=== PATIENT | female | born 1995 | race Caucasian/White ===

== ENCOUNTER 2017-01-28 12:32 | Emergency (ER) | payer OTHER ==
--- NOTE | 2017-01-28 15:35 | UCPHY ---
H & P Time Seen by Provider: 01/28/17 15:23 Patient Type: New HPI/ROS: 21-year-old female with no past medical history presents complaining of severe epigastric pain. She has had several episodes over the last 3-4 days lasting approximately 30 minutes at a time. There has been no particular pattern, 1 episode was after running 1 episode was after a meal. No fever no chills, no vomiting. She does state during that time she has the pain she is curled up in a ball and has severe nausea. Review of systems General no fever no chills no weakness HEENT no eye pain no eye discharge. No eye redness, no sore throat Respiratory no cough, no shortness of breath Cardiac no chest pain, no peripheral edema GI positive abdominal pain, no diarrhea, no constipation, no nausea, no vomiting no flank pain, no hematuria, no dysuria Musculoskeletal no myalgias, no joint pain Heme no easy bruising, no easy bleeding Endo no polyuria, no polydipsia Skin no rashes, no pruritus Neuro no syncope, no dizziness, no headaches Psych is no suicidal ideation, no homicidal ideation Past Medical/Surgical History: Noncontributory Social History: Alcohol socially, denies drugs Smoking Status: Never smoked Physical Exam: 21-year-old female, alert and oriented in no acute distress nontoxic appearance afebrile, currently asymptomatic HEENT atraumatic normocephalic, extraocular muscles intact, anicteric Oropharynx negative for erythema negative exudate, tolerating her own secretions Neck supple no meningismus Lungs clear to auscultation bilaterally Heart regular rate and rhythm without murmur rub or gallop Abdomen nondistended normoactive bowel sounds epigastric tenderness to palpation , no guarding no rebound Back no CVA tenderness, no step-offs, no spinal tenderness Extremities no cyanosis clubbing or edema Neuro alert and oriented, no focal deficits Constitutional: Initial Vital Signs Temperature (C) 36.7 C 01/28/17 12:40 Heart Rate 74 01/28/17 12:40 Respiratory Rate 14 01/28/17 12:40 Blood Pressure 137/81 H 01/28/17 12:40 O2 Sat (%) 99 01/28/17 12:40 O2 Delivery Mode Room Air Allergies/Adverse Reactions: No Known Allergies Allergy (Verified 01/28/17 12:42) Home Medications: Medication Instructions Recorded NK [No Known Home Meds] 01/28/17 Medical Decision Making ED Course/Re-evaluation: Patient seen and evaluated for acute epigastric pain coming in 30 minutes episodes over the last 3-4 days with no obvious pattern. Physical exam significant for tenderness palpation epigastric area otherwise normal Urine and lab sent Labs significant for elevated LFTs and alk-phos Differential diagnosis Acute gastritis, ulcer, cholelithiasis, biliary colic, cholecystitis, pancreatitis Impression/plan Likely biliary colic Patient sent to [facility] ER for further evaluation including ultrasound and disposition after ultrasound - Data Points Laboratory Results: Laboratory Results 01/28/17 15:55 01/28/17 15:55 01/28/17 01/28/17 01/28/17 15:55 15:55 15:50 WBC 9.89 10^3/uL H 10^3/uL (3.80-9.50) RBC 5.07 10^6/uL 10^6/uL (4.18-5.33) Hgb 15.4 g/dL g/dL (12.6-16.3) Hct 46.3 % % (38.0-47.0) MCV 91.3 fL fL (81.5-99.8) MCH 30.4 pg pg (27.9-34.1) MCHC 33.3 g/dL g/dL (32.4-36.7) RDW 12.2 % % (11.5-15.2) Plt Count 350 10^3/uL 10^3/uL (150-400) MPV 10.2 fL fL (8.7-11.7) Neut % (Auto) 68.0 % % (39.3-74.2) Lymph % (Auto) 21.5 % % (15.0-45.0) [place] % (Auto) 5.8 % % (4.5-13.0) Eos % (Auto) 3.0 % % (0.6-7.6) Baso % (Auto) 1.0 % % (0.3-1.7) Nucleat RBC Rel Count 0.0 % % (0.0-0.2) Absolute Neuts (auto) 6.72 10^3/uL H 10^3/uL (1.70-6.50) Absolute Lymphs (auto) 2.13 10^3/uL 10^3/uL (1.00-3.00) Absolute Monos (auto) 0.57 10^3/uL 10^3/uL (0.30-0.80) Absolute Eos (auto) 0.30 10^3/uL 10^3/uL (0.03-0.40) Absolute Basos (auto) 0.10 10^3/uL 10^3/uL (0.02-0.10) Absolute Nucleated RBC 0.00 10^3/uL 10^3/uL (0-0.01) Immature Gran % 0.7 % % (0.0-1.1) Immature Gran # 0.07 10^3/uL 10^3/uL (0.00-0.10) Sodium 142 mEq/L mEq/L (134-144) Potassium 3.9 mEq/L mEq/L (3.5-5.2) Chloride 105 mEq/L mEq/L (97-110) Carbon Dioxide 18 mEq/l L mEq/l (22-31) Anion Gap 19 mEq/L H mEq/L (8-16) BUN 12 mg/dL mg/dL (7-23) Creatinine 0.6 mg/dL mg/dL (0.6-1.0) Estimated GFR > 60 Glucose 82 mg/dL mg/dL (70-100) Calcium 9.4 mg/dL mg/dL (8.5-10.4) Total Bilirubin 1.2 mg/dL mg/dL (0.1-1.4) AST 282 IU/L H IU/L (14-46) ALT 332 IU/L H IU/L (9-52) Alkaline Phosphatase 147 IU/L H IU/L (38-126) Total Protein 8.3 g/dL H g/dL (6.3-8.2) Albumin 4.4 g/dL g/dL (3.5-5.0) Lipase 72.0 IU/L IU/L (23-300) Urine Color Urine Appearance Urine pH Ur Specific [place] Urine Protein Urine Ketones Urine Blood Urine Nitrate Urine Bilirubin Urine Urobilinogen Ur Leukocyte Esterase Ur Culture Indicated? Urine Glucose Urine Test NEGATIVE 01/28/17 15:50 WBC RBC Hgb Hct MCV MCH MCHC RDW Plt Count MPV Neut % (Auto) Lymph % (Auto) [place] % (Auto) Eos % (Auto) Baso % (Auto) Nucleat RBC Rel Count Absolute Neuts (auto) Absolute Lymphs (auto) Absolute Monos (auto) Absolute Eos (auto) Absolute Basos (auto) Absolute Nucleated RBC Immature Gran % Immature Gran # Sodium Potassium Chloride Carbon Dioxide Anion Gap BUN Creatinine Estimated GFR Glucose Calcium Total Bilirubin AST ALT Alkaline Phosphatase Total Protein Albumin Lipase Urine Color YELLOW Urine Appearance HAZY Urine pH 5.5 (5.0-7.5) Ur Specific [place] >= 1.030 (1.002-1.030) Urine Protein NEGATIVE (NEGATIVE) Urine Ketones TRACE H (NEGATIVE) Urine Blood NEGATIVE (NEGATIVE) Urine Nitrate NEGATIVE (NEGATIVE) Urine Bilirubin NEGATIVE (NEGATIVE) Urine Urobilinogen 0.2 EU EU (0.2-1.0) Ur Leukocyte Esterase NEGATIVE (NEGATIVE) Ur Culture Indicated? NOT INDICATED (NI) Urine Glucose NEGATIVE (NEGATIVE) Urine Test Departure - Departure Disposition: [facility] ER Clinical Impression: Epigastric abdominal pain Condition: Good Instructions: Biliary Colic (ED), Gallstones (ED), Epigastric Pain (ED) Additional Instructions: Go directly to [facility] location they will be expecting you to get an ultrasound to further evaluate her gallbladder and for potential admission depending on those findings. Referrals: NONE *PRIMARY CARE P,. [Primary Care Provider] - As per Instructions - PQRS PQRS Measurement: na
[2017-01-28 16:07] LABS: COLOR YELLOW; LEUKOCYTE ESTERASE,URINE NEGATIVE (NEGATIVE); NITRITE,URINE NEGATIVE (NEGATIVE); PH,URINE 5.5 (5.0-7.5)
[2017-01-28 16:21] LABS: % IMMATURE GRANULYOCYTES 0.7 % (0.0-1.1); ABSOLUTE IMMATURE GRANULOCYTES 0.07 10^3/uL (0.00-0.10); ADD DIFF? NO; ADD MORPH? NO; ADD SCAN? NO; ATYPICAL LYMPHOCYTE FLAG 30 (0-99); FRAGMENT RBC FLAG 0 (0-99); HEMATOCRIT 46.3 % (38.0-47.0); HEMOGLOBIN 15.4 g/dL (12.6-16.3); LEFT SHIFT FLG 0 (0-99); LIPEMIA HEMOLYSIS FLAG 80 (0-99); MEAN CELL HEMOGLOBIN 30.4 pg (27.9-34.1); MEAN CELL HEMOGLOBIN CONCENTR. 33.3 g/dL (32.4-36.7); MEAN CELL VOLUME 91.3 fL (81.5-99.8); MEAN PLATELET VOLUME 10.2 fL (8.7-11.7); PLATELET CLUMPS FLAG 40 (0-99); PLATELET COUNT 350 10^3/uL (150-400); RED BLOOD CELL COUNT 5.07 10^6/uL (4.18-5.33); RED CELL DISTRIBUTION WIDTH 12.2 % (11.5-15.2)
[2017-01-28 16:22] LABS: ALANINE AMINOTRANSFERASE 332 IU/L (9-52); ALBUMIN 4.4 g/dL (3.5-5.0); ALKALINE PHOSPHATASE 147 IU/L (38-126); ANION GAP 19 mEq/L (8-16); ASPARTATE AMINOTRANSFERASE 282 IU/L (14-46); BILIRUBIN,TOTAL 1.2 mg/dL (0.1-1.4); CALCIUM 9.4 mg/dL (8.5-10.4); CARBON DIOXIDE 18 mEq/l (22-31); CHLORIDE 105 mEq/L (97-110); CREATININE 0.6 mg/dL (0.6-1.0); GLOMERULAR FILTRATION RATE > 60; GLUCOSE 82 mg/dL (70-100); POTASSIUM 3.9 mEq/L (3.5-5.2); SODIUM 142 mEq/L (134-144); TOTAL PROTEIN 8.3 g/dL (6.3-8.2)
[2017-01-28 17:33] VITALS: TEMP 97.9
--- NOTE | 2017-01-28 17:45 | EDPHY ---
H & P Time Seen by Provider: 01/28/17 15:23 HPI/ROS: CHIEF COMPLAINT: Abdominal pain HISTORY OF PRESENT ILLNESS: The patient is a 21 year old female, [place] [facility]. The patient started having shooting abdominal pain about 1 week ago. The pain is localized to the epigastric region. It is intermittent and lasts for about 30 minutes. She has had 3 episodes of this pain , most recently yesterday evening. She has associated nausea, no vomiting. Pain does not seem to be clearly related to eating. No known alleviating or aggravating factors. The patient was seen at [facility] [place] and had elevated LFTs. She was sent here for a gallbladder ultrasound. REVIEW OF SYSTEMS: A comprehensive 10 point review of systems is otherwise negative aside from elements mentioned in the history of present illness. Past Medical/Surgical History: Denies. Social History: No drug use. No alcohol use. Nonsmoker. Smoking Status: Never smoked Physical Exam: General Appearance: Alert, pleasant Eyes: Pupils equal and round, no conjunctival pallor ENT, Mouth: Mucous membranes moist Neck: Normal inspection Respiratory: Lungs are clear to auscultation Cardiovascular: Regular rate and rhythm Gastrointestinal: Abdomen is soft and non-tender Neurological: A&O, nonfocal, normal gait Skin: Warm and dry, no rash Extremities: Normal inspection Psychiatric: Mood and affect normal Constitutional: Initial Vital Signs Temperature (C) 36.7 C 01/28/17 12:40 Heart Rate 74 01/28/17 12:40 Respiratory Rate 14 01/28/17 12:40 Blood Pressure 137/81 H 01/28/17 12:40 O2 Sat (%) 99 01/28/17 12:40 O2 Delivery Mode Room Air Allergies/Adverse Reactions: No Known Allergies Allergy (Verified 01/28/17 12:42) Home Medications: Medication Instructions Recorded Pantoprazole Sodium [Protonix 40mg 40 mg PO DAILY #20 tab 01/28/17 (*)] Medical Decision Making - Diagnostics Imaging: Study: Ultrasound the abdomen was obtained. Results: Negative. Images were interpreted by the radiologist, Dr. Doss. I viewed the images myself on the PACS system. ED Course/Re-evaluation: 1899: US was negative. I discussed findings with the patient. She is pain free. Abdomen remained soft and nontender. For now, I will treat her for acute gastritis. She will follow up with Gastroenterology for further evaluation, especially in light of the elevated LFTs. Differential Diagnosis: Differential diagnosis includes though it is not limited to acute hepatitis, cholecystitis, pancreatitis, kidney stone, bowel perforation, small bowel obstruction. - Data Points Laboratory Results: Laboratory Results 01/28/17 15:55 01/28/17 15:55 01/28/17 01/28/17 01/28/17 15:55 15:55 15:50 WBC 9.89 10^3/uL H 10^3/uL (3.80-9.50) RBC 5.07 10^6/uL 10^6/uL (4.18-5.33) Hgb 15.4 g/dL g/dL (12.6-16.3) Hct 46.3 % % (38.0-47.0) MCV 91.3 fL fL (81.5-99.8) MCH 30.4 pg pg (27.9-34.1) MCHC 33.3 g/dL g/dL (32.4-36.7) RDW 12.2 % % (11.5-15.2) Plt Count 350 10^3/uL 10^3/uL (150-400) MPV 10.2 fL fL (8.7-11.7) Neut % (Auto) 68.0 % % (39.3-74.2) Lymph % (Auto) 21.5 % % (15.0-45.0) [place] % (Auto) 5.8 % % (4.5-13.0) Eos % (Auto) 3.0 % % (0.6-7.6) Baso % (Auto) 1.0 % % (0.3-1.7) Nucleat RBC Rel Count 0.0 % % (0.0-0.2) Absolute Neuts (auto) 6.72 10^3/uL H 10^3/uL (1.70-6.50) Absolute Lymphs (auto) 2.13 10^3/uL 10^3/uL (1.00-3.00) Absolute Monos (auto) 0.57 10^3/uL 10^3/uL (0.30-0.80) Absolute Eos (auto) 0.30 10^3/uL 10^3/uL (0.03-0.40) Absolute Basos (auto) 0.10 10^3/uL 10^3/uL (0.02-0.10) Absolute Nucleated RBC 0.00 10^3/uL 10^3/uL (0-0.01) Immature Gran % 0.7 % % (0.0-1.1) Immature Gran # 0.07 10^3/uL 10^3/uL (0.00-0.10) Sodium 142 mEq/L mEq/L (134-144) Potassium 3.9 mEq/L mEq/L (3.5-5.2) Chloride 105 mEq/L mEq/L (97-110) Carbon Dioxide 18 mEq/l L mEq/l (22-31) Anion Gap 19 mEq/L H mEq/L (8-16) BUN 12 mg/dL mg/dL (7-23) Creatinine 0.6 mg/dL mg/dL (0.6-1.0) Estimated GFR > 60 Glucose 82 mg/dL mg/dL (70-100) Calcium 9.4 mg/dL mg/dL (8.5-10.4) Total Bilirubin 1.2 mg/dL mg/dL (0.1-1.4) AST 282 IU/L H IU/L (14-46) ALT 332 IU/L H IU/L (9-52) Alkaline Phosphatase 147 IU/L H IU/L (38-126) Total Protein 8.3 g/dL H g/dL (6.3-8.2) Albumin 4.4 g/dL g/dL (3.5-5.0) Lipase 72.0 IU/L IU/L (23-300) Urine Color Urine Appearance Urine pH Ur Specific [place] Urine Protein Urine Ketones Urine Blood Urine Nitrate Urine Bilirubin Urine Urobilinogen Ur Leukocyte Esterase Ur Culture Indicated? Urine Glucose Urine Test NEGATIVE 01/28/17 15:50 WBC RBC Hgb Hct MCV MCH MCHC RDW Plt Count MPV Neut % (Auto) Lymph % (Auto) [place] % (Auto) Eos % (Auto) Baso % (Auto) Nucleat RBC Rel Count Absolute Neuts (auto) Absolute Lymphs (auto) Absolute Monos (auto) Absolute Eos (auto) Absolute Basos (auto) Absolute Nucleated RBC Immature Gran % Immature Gran # Sodium Potassium Chloride Carbon Dioxide Anion Gap BUN Creatinine Estimated GFR Glucose Calcium Total Bilirubin AST ALT Alkaline Phosphatase Total Protein Albumin Lipase Urine Color YELLOW Urine Appearance HAZY Urine pH 5.5 (5.0-7.5) Ur Specific [place] >= 1.030 (1.002-1.030) Urine Protein NEGATIVE (NEGATIVE) Urine Ketones TRACE H (NEGATIVE) Urine Blood NEGATIVE (NEGATIVE) Urine Nitrate NEGATIVE (NEGATIVE) Urine Bilirubin NEGATIVE (NEGATIVE) Urine Urobilinogen 0.2 EU EU (0.2-1.0) Ur Leukocyte Esterase NEGATIVE (NEGATIVE) Ur Culture Indicated? NOT INDICATED (NI) Urine Glucose NEGATIVE (NEGATIVE) Urine Test Medications Given: Discontinued Medications Pantoprazole Sodium (Protonix) 40 mg PO EDNOW ONE Stop: 01/28/17 19:05 Last Admin: 01/28/17 19:13 Dose: 40 mg Departure - Departure Disposition: Home, Routine, Self-Care Clinical Impression: Epigastric abdominal pain Condition: Good Instructions: Epigastric Pain (ED) Additional Instructions: Stay on a bland diet. Take Protonix as prescribed. Take Mylanta 30 minutes before meals and before bedtime. Avoid medications like Aspirin. Call the referred primary care physician to arrange a followup appointment. Call the hotel and dining room cashier tomorrow to arrange an appointment. Referrals: Júnior Moore MD, FACG [Medical Doctor] - As per Instructions Charlotte Srivastava [Other] - As per Instructions Prescriptions: Pantoprazole Sodium [Protonix 40mg (*)] 40 mg PO DAILY #20 tab Report Scribed for: Cleo Burns Report Scribed by: Alison Tafoya Date of Report: 01/28/17 Time of Report: 17:45 Physician Review and Approval Statement: 01/28/17 17:45 Portions of this note were transcribed by a medical office scheduler. I personally performed the history, physical exam, and medical decision-making; and confirmed the accuracy of the information in the transcribed note.
[2017-01-28 18:48] VITALS: BP 120/69; PULSE 76; RESP 16; O2SAT 96
[2017-01-28] MEDS ORDERED: PANTOPRAZOLE SODIUM 40 MG TAB PO ONE (19:04)
== END 2017-01-28 19:13 | disposition home or self-care (01) ==
LOC: CED 12:32
DX: R10.13 Epigastric pain (principal); R11.0 Nausea
CPT/HCPCS: 80053-PO; 81003-PO; 81025-PO; 83690-PO; 85025-PO; G0463-PO

== ENCOUNTER 2018-11-26 22:37 | Emergency (ER) | payer OTHER ==
--- NOTE | 2018-11-26 22:58 | EDPHY ---
H & P Stated Complaint: Epigastric pain lasting 4 hours. Time Seen by Provider: 11/26/18 22:55 HPI/ROS: CC: Epigastric pain x 4 hours (sent by Urgent Care) HPI: This 23-year-old female with past medical history of elevated liver function tests approximately 10 months ago presents to the emergency department ton[facility]jand[facility] complaining of epigastric pain that has been ongoing for the last 4 hours. It radiates to her right upper abdomen. She describes it as stabbing. It gets as severe as a 10/10. Today was 8/10. It is resolving since she arrived in the emergency department. She was sent here by the urgent care she visited this evening. She had pain yesterday as well which lasted about 30 min. She has been having this pain at least once every month or so. She had nausea without vomiting yesterday. She denies fever, chills, or lower abdominal pain. She denies and she is on oral contraception. She drinks 2 alcoholic beverages per day usually beer or vodka. For dinner this evening she had cooked some frozen breaded chicken with vegetables. Yesterday morning she had a cheese and sausage breakfast sandwich a few hours before the pain started. Tonight she took Tums and an Advil without relief. In January 2017 she had a similar pain and presented to the emergency department where she had elevated liver function tests with an AST of 282 and an ALT of 332. She had an ultrasound at that time which was negative. She did not follow up with a primary care provider or a log check scaler as recommended. REVIEW OF SYSTEMS: Constitutional: No fever, no chills. Eyes: No discharge. ENT: No sore throat. Respiratory: No cough, no shortness of breath. Cardiac: No chest pain, no palpitations. Gastrointestinal: See HPI. Genitourinary: No dysuria. Musculoskeletal: No back pain. Skin: No rashes. Neurological: No headache. Source: Patient - Personal History LMP (Females 10-55): Extended Cycle BCP/Inj Current Tetanus/Diphtheria Vaccine: Unsure Current Tetanus Diphtheria and Acellular Pertussis (TDAP): Unsure Tetanus Vaccine Date: within 10 years - Medical/Surgical History PMH: PMH: Denied PSH: Denied FH: Denied NKDA Meds: OC, occasional Tums, Advil No PCP. Hx Asthma: No Hx Chronic Respiratory Disease: No Hx Diabetes: No Hx Cardiac Disease: No Hx Renal Disease: No Hx Cirrhosis: No Hx Alcoholism: No Hx HIV/AIDS: No Hx Splenectomy or Spleen Trauma: No Other PMH: Denies. - Social History Smoking Status: Never smoked Additional Social History: Denies tobacco products. Two alcoholic beverages per day usually beer or vodka. No marijuana or other drug use. - Physical Exam Exam: General Appearance: Alert, no distress. Eyes: Pupils equal and round no pallor or injection. ENT, Mouth: Mucous membranes are moist. Respiratory: There are no retractions, lungs are clear to auscultation. Cardiovascular: Regular rate and rhythm. Gastrointestinal: Abdomen is soft and nontender, no masses, bowel sounds normal. Neurological: Awake and alert, sensory and motor exams grossly normal. Skin: Warm and dry, no rashes. Musculoskeletal: Neck is supple, nontender. Extremities are symmetrical, full range of motion. Psychiatric: Patient is oriented X 3, there is no agitation. DIFFERENTIAL DIAGNOSIS: After history and physical exam differential diagnosis was considered for but not limited to and no particular order: Biliary colic, coli lithiasis, cholecystitis, gastritis, pancreatitis, retrocecal appendicitis , ovarian cyst Constitutional: Initial Vital Signs Temperature (C) 98.2 F 11/26/18 22:49 Heart Rate 70 11/26/18 22:49 Respiratory Rate 16 11/26/18 22:49 Blood Pressure 130/80 H 11/26/18 22:49 O2 Sat (%) 97 11/26/18 22:49 O2 Delivery Mode Room Air Allergies/Adverse Reactions: No Known Allergies Allergy (Verified 11/26/18 22:53) Home Medications: Medication Instructions Recorded Cyred 28 Day Tablet 11/26/18 Medical Decision Making ED Course/Re-evaluation: The patient was seen and examined. Vital signs were significant for a very mildly elevated blood pressure with a systolic of 130 mm of mercury. Prior records were reviewed which showed a visit in January 2017 for epigastric pain where her bilirubin was 1.2, AST 282 and ALT 332. An abdominal ultrasound was negative specifically there was no evidence of cholelithiasis or biliary ductal dilatation. This evening the patient became pain-free while in the ER. Her complete blood count was normal. Her comprehensive metabolic panel showed her bilirubin is now 1.6 with an AST of 101 and an ALT of 66. The patient was advised to follow up with the primary care provider listed. She may need a repeat abdominal ultrasound and possibly a HIDA scan as well. She should also follow up with a log check scaler as listed. In the meantime, she should follow a low-fat diet , consider Mylanta, Prilosec OTC, or Zantac/Pepcid for epigastric pain. She will return to the emergency room if she has increased or persistent pain, fever , nausea, vomiting, or any other concerns. All her questions were answered and she was pain free at discharge. - Data Points Laboratory Results: 11/26/18 11/26/18 11/26/18 23:15 23:01 22:55 POC Sodium 141 mEq/L mEq/L 156 mEq/L H mEq/L (135-145) (135-145) POC Potassium 3.2 mEq/L L mEq/L > 8.5 mEq/L H* mEq/L (3.3-5.0) (3.3-5.0) POC Chloride 109.0 mEq/L mEq/L 104.0 mEq/L mEq/L (97-110) (97-110) POC Total CO2 24 mEq/L mEq/L 21 mEq/L L mEq/L (22-31) (22-31) POC BUN 9 mg/dL mg/dL 9 mg/dL mg/dL (7-23) (7-23) POC Creatinine 0.7 mg/dL mg/dL 0.9 mg/dL mg/dL (0.6-1.0) (0.6-1.0) POC Glucose 114 mg/dL H mg/dL 116 mg/dL H mg/dL (70-100) (70-100) POC Calcium 9.4 mg/dL mg/dL < 4.0 mg/dL L* mg/dL (8.5-10.4) (8.5-10.4) POC Total Bilirubin 1.6 mg/dL H mg/dL 1.6 mg/dL H mg/dL (0.1-1.4) (0.1-1.4) POC AST 101 IU/L H IU/L 104 IU/L H IU/L (14-46) (14-46) POC ALT 66 IU/L H IU/L 68 IU/L H IU/L (9-52) (9-52) POC Alk Phosphatase 84 IU/L IU/L 49 IU/L IU/L (38-126) (38-126) POC Total Protein 6.8 g/dL g/dL 6.7 g/dL g/dL (6.3-8.2) (6.3-8.2) POC Albumin 3.5 g/dL g/dL 3.6 g/dL g/dL (3.5-5.0) (3.5-5.0) Lipase 301 IU/L H IU/L (23-300) Point of Care Test Results: CBC CBC Collection Date 11/26/18 CBC Collection Time 22:55 WBC 10.5 RBC 4.85 HGB 14.9 HCT 42.6 PLT 387 Neut # 7.9 Neut 75.2 LYMPH # 1.7 LYMPH 15.8 Other WBC # 0.9 Other WBC 9.0 MCV 87.8 Chemistry 11/26/18 11/26/18 23:15 23:01 POC Sodium 141 mEq/L mEq/L 156 mEq/L H mEq/L (135-145) (135-145) POC Potassium 3.2 mEq/L L mEq/L > 8.5 mEq/L H* mEq/L (3.3-5.0) (3.3-5.0) POC Chloride 109.0 mEq/L mEq/L 104.0 mEq/L mEq/L (97-110) (97-110) POC Total CO2 24 mEq/L mEq/L 21 mEq/L L mEq/L (22-31) (22-31) POC BUN 9 mg/dL mg/dL 9 mg/dL mg/dL (7-23) (7-23) POC Creatinine 0.7 mg/dL mg/dL 0.9 mg/dL mg/dL (0.6-1.0) (0.6-1.0) POC Glucose 114 mg/dL H mg/dL 116 mg/dL H mg/dL (70-100) (70-100) POC Calcium 9.4 mg/dL mg/dL < 4.0 mg/dL L* mg/dL (8.5-10.4) (8.5-10.4) POC Total Bilirubin 1.6 mg/dL H mg/dL 1.6 mg/dL H mg/dL (0.1-1.4) (0.1-1.4) POC AST 101 IU/L H IU/L 104 IU/L H IU/L (14-46) (14-46) POC ALT 66 IU/L H IU/L 68 IU/L H IU/L (9-52) (9-52) POC Alk Phosphatase 84 IU/L IU/L 49 IU/L IU/L (38-126) (38-126) POC Total Protein 6.8 g/dL g/dL 6.7 g/dL g/dL (6.3-8.2) (6.3-8.2) POC Albumin 3.5 g/dL g/dL 3.6 g/dL g/dL (3.5-5.0) (3.5-5.0) Departure - Departure Disposition: Home, Routine, Self-Care Clinical Impression: Intermittent epigastric abdominal pain, Elevated LFTs Condition: Good Instructions: Low Fat Diet (ED), Epigastric Pain (ED) Additional Instructions: Follow a low fat diet. Consider Mylanta, Prilosec OTC or Zantac/Pepcid for epigastric discomfort. Call first thing in the morning to arrange follow up with a primary care provider. You may need a repeat biliary ultrasoun and/or HIDA scan. Also follow up with gastroenterology. Return to the ER if pain persists, fever, nausea, vomiting or any other concerns. Referrals: NONE *PRIMARY CARE P,. [Primary Care Provider] - As per Instructions Cristino Irizarry MD [[facility] [place] Primary Care Provider] - As per Instructions Jody Jean MD [Medical Doctor] - As per Instructions
[2018-11-27 00:22] VITALS: BP 120/88
== END 2018-11-27 00:05 | disposition home or self-care (01) ==
LOC: CED 22:37
DX: R10.13 Epigastric pain (principal); R94.5 Abnormal results of liver function studies
CPT/HCPCS: 80053-ER; 99283-ER

== ENCOUNTER → 2018-11-28 | Outpatient (CLI) | payer OTHER | LOC: FIMAGING 07:41 | PROVIDERS: ATTEND Physician Assistant | DX: R74.8 Abnormal levels of other serum enzymes (principal) ==

== ENCOUNTER 2019-02-10 18:00 | Emergency (ER) | payer OTHER ==
[2019-02-10] MEDS ORDERED: NS 1,000 ML IV ONE ×2 (18:33→20:30)
[2019-02-10] MEDS ORDERED: KETOROLAC 15 MG/1 ML SDV IVP ONE ×3 (19:08→21:15)
[2019-02-10] MEDS: HYOSCYAMINE SULFATE 0.125 MG TAB PO ONE ×2 (19:20→19:25)
[2019-02-10] MEDS ORDERED: MAG HYDROX/AL HYDROX/SIMETH 30 ML UDCUP PO ONE (19:22)
--- NOTE | 2019-02-10 21:08 | EDPHY ---
H & P Stated Complaint: Pt. states ruq to mid epigastric aprox 1300 today,denies vomit /diarrhea Time Seen by Provider: 02/10/19 18:33 HPI/ROS: This patient presents with right upper quadrant pain of 6 hr duration. She admits to drinking more alcohol last week than typical for her than 4 drinks a day for a number of days in a row or more prior to the onset of the symptoms however her last drink she reports was 2 days prior to the symptoms. She has recently seen with similar symptoms and start omeprazole 1 month ago 20 mg a day and she reports compliance with that medication. Currently she describes the pain as stabbing waxing and waning in intensity but peak intensity 8/10 with no clear exacerbating factors. She has anorexia today associated with the symptoms and mild nausea. She denies any radiation of pain to her back or elsewhere. There is no change of the pain with a deep breath. He has no other associated symptoms. ROS: Constitutional: No fevers HEENT: No URI symptoms Pulmonary: No cough shortness of breath Cardiovascular: No lightheadedness or chest pain. GI: She had loose stools yesterday that have since resolved. No bloody stools or dark tarry stools. No hematemesis. : Last menstrual period was normal timing 10 days ago. No vaginal discharge. No dysuria. Integumentary: No complaints 10 point review of symptoms is performed and otherwise negative with exception of pertinent positives and negatives listed in HPI and ROS Source: Patient Exam Limitations: No limitations - Personal History LMP (Females 10-55): 8-14 Days Ago Tetanus Vaccine Date: within 10 years - Medical/Surgical History Hx Asthma: No Hx Chronic Respiratory Disease: No Hx Diabetes: No Hx Cardiac Disease: No Hx Renal Disease: No Hx Cirrhosis: No Hx Alcoholism: No Hx HIV/AIDS: No Hx Splenectomy or Spleen Trauma: No Other PMH: Med hx-GERD. Surg-none. She reports having had a normal gallbladder ultrasound within the past year. - Family History Significant Family History: No pertinent family hx - Social History Smoking Status: Never smoked Alcohol Use: Heavy Drug Use: None Additional Social History: She works the [employer]. - Physical Exam Exam: General Appearance: Alert, no distress. Eyes: Pupils equal and round no pallor or injection. ENT, Mouth: Mucous membranes moist. Respiratory: There are no retractions, lungs are clear to auscultation. Cardiovascular: Regular rate and rhythm. Gastrointestinal: Normoactive soft, mild hepatomegaly-liver edge palpable a couple cm below the right lower ribs with associated tenderness. Back: No CVA tenderness Neurological: GCS 15. Skin: Warm and dry, no rashes. Musculoskeletal: Neck is supple nontender. Extremities are symmetrical, full range of motion. Psychiatric: Mood and affect are normal DIFFERENTIAL DIAGNOSIS: After history and physical exam differential diagnosis was considered for alcohol hepatitis, pancreatitis, gastritis, Constitutional: Initial Vital Signs Temperature (C) 36.8 C 02/10/19 18:17 Heart Rate 64 02/10/19 18:17 Respiratory Rate 16 02/10/19 18:17 Blood Pressure 124/71 H 02/10/19 18:17 O2 Sat (%) 99 02/10/19 18:17 O2 Delivery Mode Room Air Allergies/Adverse Reactions: amoxicillin Allergy (Verified 02/10/19 18:17) Home Medications: Medication Instructions Recorded Cyred 28 Day Tablet 11/26/18 Omeprazole 02/10/19 Medical Decision Making ED Course/Re-evaluation: IV normal saline bolus x2 L Zofran for nausea and Toradol IV for pain as well as Levsin sublingual with mild improvement. Were repeated the Toradol 15 mg with further improvement down to mild discomfort. She also received relief from the Zofran for nausea with resolution of nausea. I reviewed her labs-POC CBC reveals white count mild elevation to 12 in half. H &H and platelets normal. Electrolytes normal. LFTs reveal elevated AST more than ALT, mild elevation of bili and alk-phos as well as mild elevation of GGT. Amylase is normal. Urine dip is normal. Urine is negative. The patient's lipase came back slightly elevated at 331 with high normal 300. Counseled regarding this in some detail. Discussion: Findings are most consistent with alcohol hepatitis. I counseled the patient regarding this encouraged abstinence from drinking explaining the process of leads from alcohol hepatitis cirrhosis and liver failure. I also related the likely association of slight elevation of her lipase to alcohol. I recommended follow up with Gastroenterology. I doubt gallbladder disease given normal gallbladder ultrasound within last year explained she should have further workup Gastroenterology for any ongoing symptoms persist despite stopping alcohol. I advised against opiate narcotics for her pain explaining the similar problems with opiates to alcohol in terms of potential for abuse. She understands need to return emergency department should she develop any significant worsening despite the treatment plan. - Data Points Laboratory Results: 02/10/19 02/10/19 02/10/19 20:35 18:56 18:50 POC Sodium 141 mEq/L mEq/L (135-145) POC Potassium 3.6 mEq/L mEq/L (3.3-5.0) POC Chloride 102.0 mEq/L mEq/L (97-110) POC Total CO2 25 mEq/L mEq/L (22-31) POC BUN 9 mg/dL mg/dL (7-23) POC Creatinine 0.9 mg/dL mg/dL (0.6-1.0) POC Glucose 103 mg/dL H mg/dL (70-100) POC Calcium 10.3 mg/dL mg/dL (8.5-10.4) POC Total Bilirubin 1.7 mg/dL H mg/dL 1.5 mg/dL H mg/dL (0.1-1.4) (0.1-1.4) POC GGT 88 IU/L H IU/L (5-65) POC AST 125 IU/L H IU/L 118 IU/L H IU/L (14-46) (14-46) POC ALT 70 IU/L H IU/L 75 IU/L H IU/L (9-52) (9-52) POC Alk Phosphatase 132 IU/L H IU/L 116 IU/L IU/L (38-126) (38-126) POC Total Protein 8.8 g/dL H g/dL 8.4 g/dL H g/dL (6.3-8.2) (6.3-8.2) POC Albumin 4.2 g/dL g/dL 4.1 g/dL g/dL (3.5-5.0) (3.5-5.0) POC Amylase 70 IU/L IU/L (30-110) Lipase 331 IU/L H IU/L (23-300) Medications Given: Discontinued Medications Al Hydroxide/Mg Hydroxide (Maalox Susp) 30 ml PO EDNOW ONE Stop: 02/10/19 19:23 Last Admin: 02/10/19 19:24 Dose: 30 ml Hyoscyamine Sulfate (Levsin, Hyomax-Sl) 0.125 mg PO EDNOW ONE Stop: 02/10/19 19:09 Last Admin: 02/10/19 19:25 Dose: 0.125 mg Sodium Chloride (Ns) 1,000 mls @ 0 mls/hr IV EDNOW ONE; Wide Open PRN Reason: Protocol Stop: 02/10/19 18:34 Last Admin: 02/10/19 18:53 Dose: 1,000 mls Sodium Chloride (Ns) 1,000 mls @ 0 mls/hr IV ONCE ONE; Wide Open PRN Reason: Protocol Stop: 02/10/19 20:31 Last Admin: 02/10/19 20:48 Dose: 1,000 mls Ketorolac Tromethamine (Toradol) 15 mg IVP EDNOW ONE Stop: 02/10/19 19:09 Last Admin: 02/10/19 19:21 Dose: Not Given Ketorolac Tromethamine (Toradol) 15 mg IVP EDNOW ONE Stop: 02/10/19 20:32 Last Admin: 02/10/19 20:46 Dose: 15 mg Ketorolac Tromethamine (Toradol) 15 mg IVP EDNOW ONE Stop: 02/10/19 21:16 Last Admin: 02/10/19 21:18 Dose: 15 mg Ondansetron HCl (Zofran) 4 mg IVP EDNOW ONE Stop: 02/10/19 21:13 Last Admin: 02/10/19 21:18 Dose: 4 mg Point of Care Test Results: CBC CBC Collection Date 02/10/19 CBC Collection Time 18:50 WBC 12.16 RBC 5.43 HGB 16.0 HCT 48.7 PLT 440 Neut # 9.36 Neut 77.0 LYMPH # 1.7 LYMPH 14.0 MCV 89.7 Chemistry 02/10/19 02/10/19 20:35 18:56 POC Sodium 141 mEq/L mEq/L (135-145) POC Potassium 3.6 mEq/L mEq/L (3.3-5.0) POC Chloride 102.0 mEq/L mEq/L (97-110) POC Total CO2 25 mEq/L mEq/L (22-31) POC BUN 9 mg/dL mg/dL (7-23) POC Creatinine 0.9 mg/dL mg/dL (0.6-1.0) POC Glucose 103 mg/dL H mg/dL (70-100) POC Calcium 10.3 mg/dL mg/dL (8.5-10.4) POC Total Bilirubin 1.7 mg/dL H mg/dL 1.5 mg/dL H mg/dL (0.1-1.4) (0.1-1.4) POC GGT 88 IU/L H IU/L (5-65) POC AST 125 IU/L H IU/L 118 IU/L H IU/L (14-46) (14-46) POC ALT 70 IU/L H IU/L 75 IU/L H IU/L (9-52) (9-52) POC Alk Phosphatase 132 IU/L H IU/L 116 IU/L IU/L (38-126) (38-126) POC Total Protein 8.8 g/dL H g/dL 8.4 g/dL H g/dL (6.3-8.2) (6.3-8.2) POC Albumin 4.2 g/dL g/dL 4.1 g/dL g/dL (3.5-5.0) (3.5-5.0) POC Amylase 70 IU/L IU/L (30-110) Liver Function Tests LFT Collection Date 02/10/19 LFT Collection Time 18:50 Urine Collection Date 02/10/19 Collection Time 20:00 HCG Results Negative Urine Dip Collection Date 02/10/19 Collection Time 20:00 Specific [place] (1.002-1.030) 1.020 PH (5.0-7.5) 7.5 Leukocytes (Negative) Negative Nitrites (Negative) Negative Protein (Negative) Negative Glucose (Negative) Negative Ketones (Negative) Negative Urobilnogen (0.2-1.0 EU) 0.2 Bilirubin (Negative) Negative Blood (Negative) Negative Departure - Departure Disposition: Home, Routine, Self-Care Clinical Impression: Hepatitis, alcoholic Qualifiers: Ascites presence: without ascites Qualified Code(s): K70.10 - Alcoholic hepatitis without ascites Condition: Good Instructions: Alcoholic Hepatitis (ED) Additional Instructions: Diagnosis: Alcohol hepatitis The mild increase in your liver enzymes his characteristic of having too much alcohol. You also have slight elevation of her lipase test the pancreatic enzyme that is also likely related to alcohol. Normal high lipase is 300 versus 331 just over normal. This will typically resolve if you stop drinking alcohol and drink plenty of fluids. We offered admission tonight for you tonight, but agreed on a plan instead to have close follow-up with primary care physician and recheck your liver function tests and lipase sometime within the next 1-3 days. Plan: Stop drinking until your liver heals and consider stopping altogether since you injured your liver due to alcohol. This same process, repeated over time ultimately results in cirrhosis of the liver, and can lead to premature from liver failure. Ibuprofen for discomfort as needed [place] diet to feel improved Continue your omeprazole [place] diet until you feel improved. Follow up with Gastroenterology for any ongoing symptoms. Return for any significant worsening despite the treatment plan Referrals: Padmini Scruggs DO [Primary Care Provider] - As per Instructions Loren Cooper MD [Medical Doctor] - As per Instructions
[2019-02-10] MEDS ORDERED: ONDANSETRON 4 MG/2 ML VIAL IVP ONE (21:12)
[2019-02-11 00:16] VITALS: BP 115/65
== END 2019-02-10 22:03 | disposition home or self-care (01) ==
LOC: CED 18:00
DX: K70.10 Alcoholic hepatitis without ascites (principal); E86.9 Volume depletion, unspecified
CPT/HCPCS: 80053-ER; 80076-ER; 81025-ER; 82150-ER; 85025-QW-ER; 85379-QW-ER; 96361-ER; 96374-ER; 96375-ER; 96376-ER; 99284-ER; J1885; J2405

== ENCOUNTER → 2019-02-21 | Outpatient (CLI) | payer OTHER | LOC: FIMAGING 13:20 | PROVIDERS: ATTEND Family Medicine | DX: R10.9 Unspecified abdominal pain (principal); R11.0 Nausea; R74.8 Abnormal levels of other serum enzymes | CPT/HCPCS: 78227; A9537 ==